=== PATIENT | male | born 1980 | race Hispanic/Latino ===

== ENCOUNTER 2024-12-21 12:32 | Emergency (ER) | payer OTHER, SELFPAY ==
[2024-12-21] MEDS ORDERED: Bacitracin 1 PK ONE (13:08)
[2024-12-21] MEDS ORDERED: Ibuprofen 600 MG TAB ONE (13:08)
[2024-12-21] MEDS ORDERED: Boostrix 0.5 ML (Tdap) VIAL (>/=7 yrs of age) ONE (13:45)
== END 2024-12-21 14:03 | disposition home or self-care (01) ==
LOC: MADERS 12:32
DX: L03.116 Cellulitis of left lower limb (principal); E11.9 Type 2 diabetes mellitus without complications; Z75.8 Other problems related to medical facilities and other health care; Z23 Encounter for immunization
CPT/HCPCS: 87070; 87077; 87205; 90471; 90715